=== PATIENT | female | born 1950 | race American Indian/Alaskan Native ===

== ENCOUNTER 2021-08-09 22:15 | Observation (INO) | payer MEDICARE ==
[~2021-08-09 22:15] MED LIST: LACTATED RINGERS 1,000 ML ONE; SODIUM CHLORIDE 0.9% 1000 ML 3,000 ML ONE
[2021-08-09] MEDS ORDERED: PANTOPRAZOLE 40 MG INJ IV ONE (22:19)
[2021-08-09] MEDS ORDERED: SODIUM CHLORIDE 0.9% 1000 ML 1,000 ML IV ONE (22:19)
--- NOTE | 2021-08-09 22:29 | Emergency Department Report ---
HPI - General Chief Complaint: GI Bleed Time Seen by Provider: 08/09/21 22:17 - HPI HPI: 70-year-old female with history of hypertension and myasthenia gravis brought in by EMS due to rectal bleeding and low blood pressure. According to the EMS report, the patient was lightheaded and had initial blood pressure of 60s over 30s. She became lightheaded and had a syncopal versus near syncopal episode in route. She was given approximately 700 cc of saline. The patient reports that approximately 3 hours ago she was on the toilet having a bowel movement when she noticed bright red blood in the toilet mixed with stool. She is unable to quantify the amount of blood. She says she drank milk today by mistake thinking it was lactated because she is lactose intolerant. She has no history of rectal bleeding. She is not on blood thinners. She denies any associated symptoms other than lightheadedness. The patient denies any headache, vision change, chest pain, shortness of breath, cough, back pain, abdominal pain, nausea/vomiting, focal weakness, sensory changes, or any other complaints. ED Past Medical Hx - Past Medical History Previous Medical History?: Yes Hx Hypertension: Yes Additional medical history: myasthenia gravis - Surgical History Past Surgical History?: No ED Review of Systems ROS: Stated complaint: rectal bleeding Other details as noted in HPI Comment: All other systems reviewed and negative Constitutional: denies: chills, fever Eyes: denies: eye pain, vision change ENT: denies: throat pain, congestion Respiratory: denies: cough, shortness of breath Cardiovascular: syncope. denies: chest pain, palpitations Gastrointestinal: diarrhea, hematochezia. denies: abdominal pain, nausea, vomiting, constipation Genitourinary: denies: dysuria, frequency Musculoskeletal: denies: back pain, arthralgia Skin: denies: rash, lesions Neurological: denies: headache, weakness, numbness Hematological/Lymphatic: denies: easy bleeding Physical Exam - Physical Exam Vital Signs: Vital Signs 08/09/21 22:17 Pulse Rate 79 Respiratory 18 Rate Blood Pressure 68/40 [Left] O2 Sat by Pulse 98 Oximetry Physical Exam: GENERAL: Well developed and well nourished. No acute distress HEAD: Normocephalic. No obvious signs of trauma. ENT: Very dry mucous membranes. EYES: Extraocular movements are intact. Pupils are equal round and reactive to light bilaterally NECK: Supple. Full ROM is intact. Trachea is midline. LUNGS: Nonlabored breathing. Equal chest rise bilaterally. Clear to auscultation bilaterally. CARDIOVASCULAR: Regular rate and rhythm. No murmurs or rubs. VASCULAR: Cap refill < 2 seconds ABDOMEN: Abdomen is soft and nondistended. There is no significant tenderness, guarding or rebound. 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 SKIN: Skin is warm and dry NEURO: Patient is awake, alert, and oriented. lead technician II-XII grossly intact. No focal deficits. Normal motor and sensory exam throughout. Normal speech. MUSCULOSKELETAL: No obvious deformities. No significant tenderness. Normal ROM throughout. ED Course Vital Signs 08/09/21 22:17 Pulse Rate 79 Respiratory 18 Rate Blood Pressure 68/40 [Left] O2 Sat by Pulse 98 Oximetry ED Medical Decision Making - Lab Data Result diagrams: 08/09/21 22:28 08/09/21 22:28 Lab Results 08/09/21 08/09/21 08/09/21 Range/Units 22:28 22:28 22:28 WBC 13.0 H (4.5-11.0) K/mm3 RBC 3.93 (3.65-5.03) M/mm3 Hgb 11.1 (10.1-14.3) gm/dl Hct 36.4 (30.3-42.9) % MCV 93 (79-97) fl MCH 28 (28-32) pg MCHC 31 (30-34) % RDW 13.5 (13.2-15.2) % Plt Count 349 (140-440) K/mm3 Lymph % (Auto) 24.6 (13.4-35.0) % [place] % (Auto) 6.0 (0.0-7.3) % Eos % (Auto) 1.7 (0.0-4.3) % Baso % (Auto) 0.5 (0.0-1.8) % Lymph # (Auto) 3.2 (1.2-5.4) K/mm3 [place] # (Auto) 0.8 (0.0-0.8) K/mm3 Eos # (Auto) 0.2 (0.0-0.4) K/mm3 Baso # (Auto) 0.1 (0.0-0.1) K/mm3 Seg Neutrophils % 67.2 (40.0-70.0) % Seg Neutrophils # 8.8 H (1.8-7.7) K/mm3 PT 14.6 (12.2-14.9) Sec. INR 1.03 (0.87-1.13) APTT 37.1 H (24.2-36.6) Sec. Sodium 135 L (137-145) mmol/L Potassium 3.9 (3.6-5.0) mmol/L Chloride 104.4 (98-107) mmol/L Carbon Dioxide 16 L (22-30) mmol/L Anion Gap 19 mmol/L BUN 22 H (7-17) mg/dL Creatinine 1.2 (0.6-1.2) mg/dL Estimated GFR 54 ml/min BUN/Creatinine Ratio 18 % Glucose 190 H (65-100) mg/dL Calcium 8.0 L (8.4-10.2) mg/dL Magnesium 1.80 (1.7-2.3) mg/dL Total Bilirubin 0.20 (0.1-1.2) mg/dL Direct Bilirubin < 0.2 (0-0.2) mg/dL Indirect Bilirubin 0.0 mg/dL AST 11 (5-40) units/L ALT 5 L (7-56) units/L Alkaline Phosphatase 58 (35-129) units/L Troponin T (0.00-0.029) ng/mL Total Protein 5.4 L (6.3-8.2) g/dL Albumin 2.9 L (3.9-5) g/dL Albumin/Globulin Ratio 1.2 % Lipase 14 (13-60) units/L Blood Type Antibody Screen Crossmatch 08/09/21 08/09/21 Range/Units 22:28 22:40 WBC (4.5-11.0) K/mm3 RBC (3.65-5.03) M/mm3 Hgb (10.1-14.3) gm/dl Hct (30.3-42.9) % MCV (79-97) fl MCH (28-32) pg MCHC (30-34) % RDW (13.2-15.2) % Plt Count (140-440) K/mm3 Lymph % (Auto) (13.4-35.0) % [place] % (Auto) (0.0-7.3) % Eos % (Auto) (0.0-4.3) % Baso % (Auto) (0.0-1.8) % Lymph # (Auto) (1.2-5.4) K/mm3 [place] # (Auto) (0.0-0.8) K/mm3 Eos # (Auto) (0.0-0.4) K/mm3 Baso # (Auto) (0.0-0.1) K/mm3 Seg Neutrophils % (40.0-70.0) % Seg Neutrophils # (1.8-7.7) K/mm3 PT (12.2-14.9) Sec. INR (0.87-1.13) APTT (24.2-36.6) Sec. Sodium (137-145) mmol/L Potassium (3.6-5.0) mmol/L Chloride (98-107) mmol/L Carbon Dioxide (22-30) mmol/L Anion Gap mmol/L BUN (7-17) mg/dL Creatinine (0.6-1.2) mg/dL Estimated GFR ml/min BUN/Creatinine Ratio % Glucose (65-100) mg/dL Calcium (8.4-10.2) mg/dL Magnesium (1.7-2.3) mg/dL Total Bilirubin (0.1-1.2) mg/dL Direct Bilirubin (0-0.2) mg/dL Indirect Bilirubin mg/dL AST (5-40) units/L ALT (7-56) units/L Alkaline Phosphatase (35-129) units/L Troponin T < 0.010 (0.00-0.029) ng/mL Total Protein (6.3-8.2) g/dL Albumin (3.9-5) g/dL Albumin/Globulin Ratio % Lipase (13-60) units/L Blood Type A POSITIVE Antibody Screen Negative Crossmatch See Detail - EKG Data -: EKG Interpreted by Mo - EKG Data 08/10/21 02:31 Normal sinus rhythm. Normal axis. Normal intervals. No ectopy. Nonspecific T wave inversions. No significant ST segment abnormalities. - Radiology Data Radiology results: report reviewed - Medical Decision Making 70-year-old female with hypertension myasthenia gravis brought in by EMS with rectal bleeding for the past 3 hours and hypotension with brief syncope versus near syncopal episode while in route. Upon arrival to our emergency department after receiving 700 cc of saline in the ambulance, the patient's blood pressure is 72/42. Rectal examination reveals no brisk bleeding from the rectum but there is bright red blood and blood clots within the rectal vault which are Hemoccult positive. Given the patient's hypotension, I immediately requested 2 large-bore IVs. I spoke with the blood bank to request 2 units of uncrossed matched blood to transfuse immediately. I have also ordered 1 L to be transfused immediately. Full set of labs have been ordered. We will give 80 mg of IV Protonix. The patient's blood pressure has improved as blood has been transfused. Labs reveal white blood cell count of 13 and hemoglobin of 11.1. I suspect that this hemoglobin is lacking behind the patient's bleed which was significant enough to cause hypotension. Troponin is negative. Creatinine is 1.2 from unknown baseline. When I spoke reassess the patient after she received blood, she reports that she feels much better. She has no symptoms currently. At 11 PM I spoke with Dr. Yoo of gastro neurology regarding the case. He recommends CT angio of the abdomen to assess for evidence of active bleed. He states that if the patient does not have an active bleed she likely has a diverticular bleed and is appropriate for admission with consult by GI in the morning. CTA shows no evidence of active bleed but shows generalized diverticulosis. She will be admitted for further work-up and management as appropriate. All this was discussed with the patient who expressed understanding agreement with plan of care. I spoke with Dr. Johnson, the on-call hospitalist regarding the case and he accepts the patient for admission and will assume care. Critical Care Time: Yes Critical care time in (mins) excluding proc time.: 40 Critical care attestation.: If time is entered above; I have spent that time in minutes in the direct care of this critically ill patient, excluding procedure time. Critical care time was spent in the evaluation/assessment, work-up, and management of GI bleed with hypotension requiring transfusion of uncrossed blood and consultation with specialist along with close observation and repeat reassessment and reevaluation. ED Disposition Clinical Impression: GI bleed, Hypotension, Diverticulosis, History of myasthenia gravis Disposition: 09 ADMITTED INPATIENT Is pt being admited?: Yes Condition: Serious Referrals: PRIMARY CARE, [Primary Care Provider] - 3-5 Days Forms: Accompanied Note
[2021-08-09 22:52] LABS: Basophils # (Auto) 0.1 K/mm3 (0.0-0.1); Basophils % (Auto) 0.5 % (0.0-1.8); Eosinophils # (Auto) 0.2 K/mm3 (0.0-0.4); Eosinophils % (Auto) 1.7 % (0.0-4.3); Hematocrit 36.4 % (30.3-42.9); Hemoglobin 11.1 gm/dl (10.1-14.3); Lymphocytes # (Auto) 3.2 K/mm3 (1.2-5.4); Lymphocytes % (Auto) 24.6 % (13.4-35.0); Mean Corpuscular HGB Conc 31 % (30-34); Mean Corpuscular Volume 93 fl (79-97); Monocytes # (Auto) 0.8 K/mm3 (0.0-0.8); Platelet Count 349 K/mm3 (140-440); Red Blood Count 3.93 M/mm3 (3.65-5.03); Red Cell Distribution Width 13.5 % (13.2-15.2)
[2021-08-09 23:04] LABS: INR 1.03 (0.87-1.13)
[2021-08-09 23:05] LABS: Partial Thromboplastin Time 37.1 Sec. (24.2-36.6)
[2021-08-09 23:16] LABS: Alanine Aminotransferase 5 units/L (7-56); Albumin 2.9 g/dL (3.9-5); BUN/Creatinine Ratio 18; Blood Urea Nitrogen 22 mg/dL (7-17); Hemolysis Index 6
[2021-08-09 23:19] LABS: Bilirubin,Direct < 0.2 mg/dL (0-0.2)
--- NOTE | 2021-08-10 00:50 | Cat Scan Report ---
CTA ABDOMEN AND PELVIS WITHOUT AND WITH IV CONTRAST INDICATION: Rectal bleeding, hypotension, eval for active bleeding. TECHNIQUE: Axial CT images were obtained through the abdomen and pelvis before and after after injection of 100 cc Omnipaque 350 IV contrast. 3 plane MIP reconstructions were produced. [facility] using CT dose reduction for ALARA by means of automated exposure control. COMPARISON: CT abdomen and pelvis without contrast from 09/15/2008 FINDINGS: VASCULAR FINDINGS: AORTA: No acute findings. There is moderate generalized atherosclerosis. The aorta is normal in calib er. CELIAC TRUNK: No significant abnormality. SUPERIOR MESENTERIC ARTERY: No significant abnormality. RENAL ARTERIES: Mildly obstructive atherosclerosis is seen at the origins of the renal arteries. A pa tent accessory right renal artery is also noted. No other significant abnormality. INFERIOR MESENTERIC ARTERY: No significant abnormality. RIGHT ILIAC ARTERIES: No acute findings. There is moderate generalized atherosclerosis. LEFT ILIAC ARTERIES: No acute findings. There is moderate generalized atherosclerosis. FEMORAL ARTERIES: No acute findings. There is moderate bilateral atherosclerosis. NONTARGET STRUCTURES: ABDOMEN: A nonspecific hyperenhancing mass is seen anteriorly and laterally along the right hepatic l obe measuring 1.5 cm on image 41 of series 3. No active contrast extravasation is identified along th e GI tract. There is noninflamed generalized colonic diverticulosis. No other significant abnormaliti es. PELVIS: No significant abnormality. SKELETAL: No significant abnormality. ADDITIONAL FINDINGS: None. IMPRESSION: 1. No CT evidence of an active GI bleed or other acute abnormalities. 2. Additional findings as above. Signer Name: Duc Escobedo MD Signed: 08/10/2021 12:45 AM Workstation Name: [id number]
[2021-08-10] MEDS ORDERED: ACETAMINOPHEN 325 MG TAB PO PRN (03:25)
[2021-08-10] MEDS ORDERED: MORPHINE 4 MG/1 ML INJ IV PRN (03:25)
[2021-08-10] MEDS ORDERED: ONDANSETRON 4 MG/2 ML INJ IV PRN (03:25)
[2021-08-10] MEDS ORDERED: MORPHINE 2 MG/1 ML INJ IV PRN (03:25)
[2021-08-10 03:29] LABS: Bacteria,Urine 1+ /HPF (Negative); Bilirubin,Urine NEG (Negative); Blood,Urine LG (Negative); Color,Urine Yellow (Yellow); Mucus,Urine FEW /HPF; Protein,Urine <15 mg/dL mg/dL (Negative); Urobilinogen,Urine < 2.0 mg/dL (<2.0)
--- NOTE | 2021-08-10 03:50 | History and Physical Report ---
History of Present Illness Date of examination: 08/10/21 Date of admission: 08/10/21 02:08 Chief complaint: GI bleed Hypotension History of present illness: 70-year-old female with known history of myasthenia gravis presenting to the emergency room today via EMS for evaluation of rectal bleeding and hypotension. Patient states she became lightheaded after using the restroom today. She also had bright red blood mixed with the stool when she went to the restroom. According to EMS blood pressure initially was 60s systolic and 30s diastolic.. She had about 700 cc of normal saline with improvement of blood pressure to about 70/40 mmHg. Patient denies having this type of episodes in the past. She also indicates that she has had colonoscopies in the recent past without any abnormalities detected. Patient denies any fever or chills, no chest pain or shortness of breath, no nausea vomiting and no abdominal pain. She denies any hematuria or dysuria. Upon arrival in the emergency room patient had some blood transfusion. Work-up however reveals leukocytosis of 13, BUN of 22 and creatinine of 1.2. Urinalysis shows a mild UTI. CT angiogram of the abdomen shows no evidence of active GI bleeding. Colonic diverticulosis was noted. Forming Operator on-call Dr. Yoo was notified by the ER physician. Past History Past Medical History: hypertension, other (Myasthenia gravis) Past Surgical History: Other (Colonoscopies in the past) Social history: no significant social history Family history: no significant family history Medications and Allergies Allergies Allergy/AdvReac Type Severity Reaction Status Date / Time No Known Allergies Allergy Unverified 08/09/21 22:44 Active Meds: Active Medications Acetaminophen (Acetaminophen 325 Mg Tab) 650 mg PO Q4H PRN PRN Reason: Pain MILD(1-3)/Fever >100.5/LU Sodium Chloride (Nacl 0.9% 1000 Ml) 1,000 mls @ 75 mls/hr IV DIRECT HAYDEN Morphine Sulfate (Morphine 2 Mg/1 Ml Inj) 2 mg IV Q4H PRN PRN Reason: Pain, Moderate (4-6) Morphine Sulfate (Morphine 4 Mg/1 Ml Inj) 4 mg IV Q4H PRN PRN Reason: Pain , Severe (7-10) Ondansetron HCl (Ondansetron 4 Mg/2 Ml Inj) 4 mg IV Q8H PRN PRN Reason: Nausea And Vomiting Sodium Chloride (Sodium Chloride 0.9% 10 Ml Flush Syringe) 10 ml IV BID HAYDEN Sodium Chloride (Sodium Chloride 0.9% 10 Ml Flush Syringe) 10 ml IV PRN PRN PRN Reason: LINE FLUSH Review of Systems Constitutional: no fever, no chills Ears, nose, mouth and throat: no nasal congestion, no sore throat Cardiovascular: no chest pain, no palpitations Respiratory: no cough, no shortness of breath Gastrointestinal: BRBPR, no abdominal pain, no nausea, no vomiting, no hematemesis Genitourinary Female: no dysuria, no hematuria Rectal: bleeding Integumentary: no rash, no pruritis Psychiatric: no anxiety, no depression Endocrine: no polyphagia, no polydipsia, no polyuria, no nocturia Exam - Constitutional Vitals: Temp Pulse Resp BP Pulse Ox 98.6 F 88 24 123/70 99 08/09/21 23:39 08/10/21 01:00 08/10/21 01:00 08/10/21 01:00 08/10/21 01:15 General appearance: Present: no acute distress, well-nourished - EENT Eyes: Present: PERRL, EOM intact. Absent: scleral icterus ENT: hearing intact, clear oral mucosa, dentition normal - Neck Neck: Present: supple, normal ROM - Respiratory Respiratory effort: normal Respiratory: bilateral: CTA - Cardiovascular Rhythm: regular Heart Sounds: Present: S1 & S2. Absent: gallop, systolic murmur, diastolic murmur, rub, click - Extremities Extremities: no ischemia, pulses intact, pulses symmetrical, No edema, normal temperature, normal color, Full ROM Peripheral Pulses: within normal limits - Abdominal General gastrointestinal: Present: soft, non-tender, non-distended, normal bowel sounds. Absent: mass - Integumentary Integumentary: Present: clear, warm, dry - Musculoskeletal Musculoskeletal: strength equal bilaterally - Psychiatric Psychiatric: appropriate mood/affect, intact judgment & insight, memory intact, cooperative - Neurologic Neurologic: CNII-XII intact, no focal deficits, moves all extremities HEART Score - HEART Score Troponin: Troponin T < 0.010 ng/mL (0.00-0.029) 08/09/21 22:28 Results - Labs CBC & Chem 7: 08/09/21 22:28 08/09/21 22:28 Labs: Abnormal lab results 08/09/21 08/09/21 08/09/21 Range/Units 22:28 22:28 22:28 WBC 13.0 H (4.5-11.0) K/mm3 Seg Neutrophils # 8.8 H (1.8-7.7) K/mm3 APTT 37.1 H (24.2-36.6) Sec. Sodium 135 L (137-145) mmol/L Carbon Dioxide 16 L (22-30) mmol/L BUN 22 H (7-17) mg/dL Glucose 190 H (65-100) mg/dL Calcium 8.0 L (8.4-10.2) mg/dL ALT 5 L (7-56) units/L Total Protein 5.4 L (6.3-8.2) g/dL Albumin 2.9 L (3.9-5) g/dL Ur Specific [place] (1.003-1.030) Urine WBC (Auto) (0.0-6.0) /HPF Crossmatch 08/09/21 08/09/21 Range/Units 22:40 Unknown WBC (4.5-11.0) K/mm3 Seg Neutrophils # (1.8-7.7) K/mm3 APTT (24.2-36.6) Sec. Sodium (137-145) mmol/L Carbon Dioxide (22-30) mmol/L BUN (7-17) mg/dL Glucose (65-100) mg/dL Calcium (8.4-10.2) mg/dL ALT (7-56) units/L Total Protein (6.3-8.2) g/dL Albumin (3.9-5) g/dL Ur Specific [place] 1.050 H (1.003-1.030) Urine WBC (Auto) 45.0 H (0.0-6.0) /HPF Crossmatch See Detail Assessment and Plan - Patient Problems (1) GI bleed Current Visit: Yes Status: Acute Plan to address problem: Possibly diverticular bleed. We will await further evaluation by gastroenterology. We will also monitor CBC. (2) Diverticulosis Current Visit: Yes Status: Acute Plan to address problem: We await further evaluation by gastroenterology. (3) History of myasthenia gravis Current Visit: Yes Status: Acute Plan to address problem: Stable. We will continue routine home medications. (4) Hypotension Current Visit: Yes Status: Acute Plan to address problem: Possibly secondary to GI blood loss. We will continue on IV fluid and monitor vital signs closely. (5) UTI (urinary tract infection) Current Visit: Yes Status: Acute Plan to address problem: Patient placed on empiric IV antibiotics. (6) DVT prophylaxis Current Visit: Yes Status: Acute Plan to address problem: Patient placed on sequential compression device. (7) Full code status Current Visit: Yes Status: Acute Plan to address problem: Patient is full code.
[2021-08-10] MEDS ORDERED: cefTRIAXone/NS 2 GM/100 ML 2 GM/100 ML BAG IV ONE (04:58)
[2021-08-10] MEDS: SODIUM CHLORIDE 0.9% 1000 ML 1,000 ML IV SCH ×2 (05:19→12:41)
--- NOTE | 2021-08-10 13:07 | Event Note ---
Date: 08/10/21 Patient seen and examined Chart reviewed Patient is doing well Lower GI bleeding stopped spontaneously Patient had 3 colonoscopies in the past The first 1 in year 1999, second colonoscopy in 2009 and third colonoscopy in 2016 Patient did colonoscopies frequently because of colon cancer history in the family Patient is interested in getting colonoscopy to know the diagnosis. Patient had 2 units of packed red blood cells because of hypotension Patient started on clear liquids Patient to get Colon Prep if necessary after GI sees her in consultation.
[2021-08-10 14:55] LABS: Hematocrit 33.6 % (30.3-42.9); Hemoglobin 10.9 gm/dl (10.1-14.3)
--- NOTE | 2021-08-10 18:20 | Gastroenterology Consultation ---
History of Present Illness - Reason for Consult Consult date: 08/10/21 Diverticular Hemorrhage Requesting physician: JUANA BERNBAE - History of Present Illness The patient is a 70 yo female admitted with acute hematochezia (3 episodes) yesterday. There was associated hypotension in the ER (resolved). She rec'd 2 units PRBC, but current hct is 33. She has no hx of GI bleed, but a CT showed extensive diverticulosis. She was not taking NSAIDs nor DOAC. She last had a colonoscopy about 4 years ago (normal without polyps, other than tics). She has no hx of PUD or bleeding disorder. She has no abdominal pain. Today, she tolerated a liquid diet without blood loss. There is no family hx of colon cancer or diverticulitis. Past History Past Medical History: hypertension, other (Myasthenia gravis) Past Surgical History: Other (Colonoscopies in the past) Social history: no significant social history Family history: no significant family history Medications and Allergies Allergies Allergy/AdvReac Type Severity Reaction Status Date / Time No Known Allergies Allergy Unverified 08/09/21 22:44 Active Meds: Active Medications Acetaminophen (Acetaminophen 325 Mg Tab) 650 mg PO Q4H PRN PRN Reason: Pain MILD(1-3)/Fever >100.5/LU Sodium Chloride (Nacl 0.9% 1000 Ml) 1,000 mls @ 75 mls/hr IV DIRECT HAYDEN Last Admin: 08/10/21 12:41 Dose: 75 mls/hr Documented by: Ceftriaxone Sodium (Rocephin/Ns 1 Gm/50 Ml) 1 gm in 50 mls @ 100 mls/hr IV Q24H HAYDEN; Protocol Morphine Sulfate (Morphine 2 Mg/1 Ml Inj) 2 mg IV Q4H PRN PRN Reason: Pain, Moderate (4-6) Morphine Sulfate (Morphine 4 Mg/1 Ml Inj) 4 mg IV Q4H PRN PRN Reason: Pain , Severe (7-10) Ondansetron HCl (Ondansetron 4 Mg/2 Ml Inj) 4 mg IV Q8H PRN PRN Reason: Nausea And Vomiting Sodium Chloride (Sodium Chloride 0.9% 10 Ml Flush Syringe) 10 ml IV BID HAYDEN Last Admin: 08/10/21 12:41 Dose: 10 ml Documented by: Sodium Chloride (Sodium Chloride 0.9% 10 Ml Flush Syringe) 10 ml IV PRN PRN PRN Reason: LINE FLUSH I HAVE REVIEWED/RECONCILED MEDICATIONS Review of Systems - Review of Systems All systems: negative (as noted in the HPI) Exam - Constitutional Vital Signs: Temp Pulse Resp BP Pulse Ox 98.5 F 82 18 123/74 96 08/10/21 10:13 08/10/21 10:15 08/10/21 14:00 08/10/21 10:13 08/10/21 14:00 General appearance: no acute distress - EENT Eyes: PERRL, EOM intact ENT: hearing intact, clear oral mucosa - Neck Neck: supple, normal ROM - Respiratory Respiratory effort: normal Respiratory: bilateral: CTA - Cardiovascular Rhythm: regular Heart Sounds: Present: S1 & S2 Extremities: no ischemia, No edema - Gastrointestinal General gastrointestinal: Present: soft, non-tender, non-distended - Integumentary Integumentary: Present: clear, warm, dry - Neurologic Neurological: alert and oriented x3 - Labs CBC & Chem 7: 08/10/21 13:54 08/09/21 22:28 Lab Results: Laboratory Results - last 24 hr 08/09/21 08/09/21 08/09/21 22:28 22:28 22:28 WBC 13.0 H RBC 3.93 Hgb 11.1 Hct 36.4 MCV 93 MCH 28 MCHC 31 RDW 13.5 Plt Count 349 Lymph % (Auto) 24.6 [place] % (Auto) 6.0 Eos % (Auto) 1.7 Baso % (Auto) 0.5 Lymph # (Auto) 3.2 [place] # (Auto) 0.8 Eos # (Auto) 0.2 Baso # (Auto) 0.1 Seg Neutrophils % 67.2 Seg Neutrophils # 8.8 H PT 14.6 INR 1.03 APTT 37.1 H Sodium 135 L Potassium 3.9 Chloride 104.4 Carbon Dioxide 16 L Anion Gap 19 BUN 22 H Creatinine 1.2 Estimated GFR 54 BUN/Creatinine Ratio 18 Glucose 190 H Calcium 8.0 L Magnesium 1.80 Total Bilirubin 0.20 Direct Bilirubin < 0.2 Indirect Bilirubin 0.0 AST 11 ALT 5 L Alkaline Phosphatase 58 Troponin T Total Protein 5.4 L Albumin 2.9 L Albumin/Globulin Ratio 1.2 Lipase 14 Urine Color Urine Turbidity Urine pH Ur Specific [place] Urine Protein Urine Glucose (UA) Urine Ketones Urine Blood Urine Nitrite Urine Bilirubin Urine Urobilinogen Ur Leukocyte Esterase Urine WBC (Auto) Urine RBC (Auto) U Epithel Cells (Auto) Urine Bacteria (Auto) Urine Mucus Urine Yeast (Budding) Blood Type Antibody Screen Crossmatch 08/09/21 08/09/21 08/09/21 22:28 22:40 Unknown WBC RBC Hgb Hct MCV MCH MCHC RDW Plt Count Lymph % (Auto) [place] % (Auto) Eos % (Auto) Baso % (Auto) Lymph # (Auto) [place] # (Auto) Eos # (Auto) Baso # (Auto) Seg Neutrophils % Seg Neutrophils # PT INR APTT Sodium Potassium Chloride Carbon Dioxide Anion Gap BUN Creatinine Estimated GFR BUN/Creatinine Ratio Glucose Calcium Magnesium Total Bilirubin Direct Bilirubin Indirect Bilirubin AST ALT Alkaline Phosphatase Troponin T < 0.010 Total Protein Albumin Albumin/Globulin Ratio Lipase Urine Color Yellow Urine Turbidity Clear Urine pH 5.0 Ur Specific [place] 1.050 H Urine Protein <15 mg/dl Urine Glucose (UA) Neg Urine Ketones Neg Urine Blood Lg Urine Nitrite Neg Urine Bilirubin Neg Urine Urobilinogen < 2.0 Ur Leukocyte Esterase Mod Urine WBC (Auto) 45.0 H Urine RBC (Auto) 86.0 U Epithel Cells (Auto) < 1.0 Urine Bacteria (Auto) 1+ Urine Mucus Few Urine Yeast (Budding) Few Blood Type A POSITIVE Antibody Screen Negative Crossmatch See Detail 08/10/21 13:54 WBC RBC Hgb 10.9 Hct 33.6 MCV MCH MCHC RDW Plt Count Lymph % (Auto) [place] % (Auto) Eos % (Auto) Baso % (Auto) Lymph # (Auto) [place] # (Auto) Eos # (Auto) Baso # (Auto) Seg Neutrophils % Seg Neutrophils # PT INR APTT Sodium Potassium Chloride Carbon Dioxide Anion Gap BUN Creatinine Estimated GFR BUN/Creatinine Ratio Glucose Calcium Magnesium Total Bilirubin Direct Bilirubin Indirect Bilirubin AST ALT Alkaline Phosphatase Troponin T Total Protein Albumin Albumin/Globulin Ratio Lipase Urine Color Urine Turbidity Urine pH Ur Specific [place] Urine Protein Urine Glucose (UA) Urine Ketones Urine Blood Urine Nitrite Urine Bilirubin Urine Urobilinogen Ur Leukocyte Esterase Urine WBC (Auto) Urine RBC (Auto) U Epithel Cells (Auto) Urine Bacteria (Auto) Urine Mucus Urine Yeast (Budding) Blood Type Antibody Screen Crossmatch Assessment and Plan - Patient Problems (1) Diverticulosis of colon with hemorrhage Current Visit: Yes Status: Acute Plan to address problem: - The acute episode appears resolved, and the patient has no signs of bleeding today. - We will advance diet, and OK to discharge home if no bleeding tomorrow. - I would avoid NSAIDs, including ASA, for the next 7 days.
[2021-08-10] MEDS ORDERED: traZODone 100 MG TAB PO SCH (22:00)
[2021-08-11] MEDS: SODIUM CHLORIDE 0.9% 1000 ML 1,000 ML IV SCH (03:40)
[2021-08-11] MEDS ORDERED: cefTRIAXone/NS 1 GM/50 ML 1 GM/50 ML BAG IV SCH (06:00)
[2021-08-11 06:07] LABS: Basophils % (Auto) 0.7 % (0.0-1.8); Eosinophils # (Auto) 0.2 K/mm3 (0.0-0.4); Eosinophils % (Auto) 3.5 % (0.0-4.3); Hemoglobin 10.5 gm/dl (10.1-14.3); Lymphocytes % (Auto) 33.8 % (13.4-35.0); Mean Corpuscular HGB Conc 32 % (30-34); Mean Corpuscular Volume 88 fl (79-97); Monocytes # (Auto) 0.5 K/mm3 (0.0-0.8); Monocytes % (Auto) 9.1 % (0.0-7.3); Platelet Count 235 K/mm3 (140-440); Red Blood Count 3.73 M/mm3 (3.65-5.03); Red Cell Distribution Width 13.5 % (13.2-15.2)
[2021-08-11 06:29] LABS: Blood Urea Nitrogen 12 mg/dL (7-17); Calcium 8.7 mg/dL (8.4-10.2); Hemolysis Index 1
[2021-08-11 06:40] LABS: BUN/Creatinine Ratio 20
[2021-08-11] MEDS ORDERED: METOPROLOL SUCCINATE XL 25 MG TAB PO SCH (10:00)
[2021-08-11] MEDS ORDERED: METOPROLOL TARTRATE 25 MG TAB PO SCH (10:00)
--- NOTE | 2021-08-11 10:30 | Discharge Summary ---
Providers - Providers Date of Admission: 08/10/21 02:08 Date of discharge: 08/11/21 Attending physician: JUANA BERNABE 08/09/21 23:27 Consult to Physician [CONS] Stat Comment: Dr. Recio spoke with Dr. Doss @ [phone] Consulting Provider: KIRT DOSS Physician Instructions: Reason For Exam: gi bleed Primary care physician: FABRIC NORMALIZER Hospitalization Condition: Serious Hospital course: 70-year-old female with known history of myasthenia gravis presenting to the emergency room today via EMS for evaluation of rectal bleeding and hypotension. Patient states she became lightheaded after using the restroom today. She also had bright red blood mixed with the stool when she went to the restroom. According to EMS blood pressure initially was 60s systolic and 30s diastolic.. She had about 700 cc of normal saline with improvement of blood pressure to about 70/40 mmHg. Patient denies having this type of episodes in the past. She also indicates that she has had colonoscopies in the recent past without any abnormalities detected. Patient denies any fever or chills, no chest pain or shortness of breath, no nausea vomiting and no abdominal pain. She denies any hematuria or dysuria. Upon arrival in the emergency room patient had some blood transfusion. Work-up however reveals leukocytosis of 13, BUN of 22 and creatinine of 1.2. Urinalysis shows a mild UTI. CT angiogram of the abdomen shows no evidence of active GI bleeding. Colonic diverticulosis was noted. Carpet Mechanic on-call Dr. Doss was notified by the ER physician. Assessment and Plan - Patient Problems (1) GI bleed Current Visit: Yes Status: Acute Plan to address problem: Diverticular bleed No further bleeding Discharge on high-fiber diet Return to ER if bleeding recurs (2) Diverticulosis Current Visit: Yes Status: Acute Plan to address problem: Bleeding is stopped High-fiber diet (3) History of myasthenia gravis Current Visit: Yes Status: Acute Plan to address problem: Stable. We will continue routine home medications. (4) Hypotension Current Visit: Yes Status: Acute Plan to address problem: Hypertension secondary to GI bleed (5) UTI (urinary tract infection) Current Visit: Yes Status: Acute Plan to address problem: Continue oral antibiotics Disposition: 01 HOME / SELF CARE / HOMELESS Final Discharge Diagnosis (Prints w/discharge instructions): Acute GI bleed - Discharge Diagnoses (1) GI bleed Status: Acute (2) Hypotension Status: Acute (3) UTI (urinary tract infection) Status: Acute (4) History of myasthenia gravis Status: Acute Core Measure Documentation - Palliative Care Palliative Care/ Comfort Measures: Not Applicable - Core Measures Any of the following diagnoses?: none Exam - Constitutional Vitals: Temp Pulse Resp BP Pulse Ox 98.3 F 90 18 173/96 95 08/11/21 03:42 08/11/21 08:03 08/11/21 08:03 08/11/21 08:03 08/11/21 08:03 General appearance: Present: no acute distress, well-nourished - EENT Eyes: Present: PERRL ENT: hearing intact, clear oral mucosa - Neck Neck: Present: supple, normal ROM - Respiratory Respiratory effort: normal Respiratory: bilateral: CTA - Cardiovascular Heart rate: 78 Rhythm: regular Heart Sounds: Present: S1 & S2. Absent: rub, click - Extremities Extremities: no ischemia, pulses intact, pulses symmetrical, No edema Peripheral Pulses: within normal limits - Abdominal General gastrointestinal: Present: soft, non-tender, non-distended, normal bowel sounds Female genitourinary: Present: normal - Rectal Rectal Exam: deferred - Integumentary Integumentary: Present: clear, warm, dry - Musculoskeletal Musculoskeletal: gait normal, strength equal bilaterally - Psychiatric Psychiatric: appropriate mood/affect, intact judgment & insight - Neurologic Neurologic: CNII-XII intact, moves all extremities Plan Activity: no restrictions Diet: regular Follow up with: SARAH SANCHEZ MD [Primary Care Provider] - 3-5 Days KIRT DOSS MD [Staff Physician] - 7 Days Forms: Accompanied Note
[2021-08-11 12:26] VITALS: BP 155/80
--- NOTE | 2021-08-13 10:36 | Electrocardiograph Report ---
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
== END 2021-08-11 13:51 | disposition home or self-care (01) ==
LOC: ED 22:15 → 4A 08-10 02:08
PROVIDERS: ADMIT Internal Medicine Geriatric Medicine; ATTEND Internal Medicine
DX: K92.2 Gastrointestinal hemorrhage, unspecified (principal); I95.9 Hypotension, unspecified; D64.9 Anemia, unspecified; I10 Essential (primary) hypertension; N39.0 Urinary tract infection, site not specified; G70.00 Myasthenia gravis without (acute) exacerbation; F17.210 Nicotine dependence, cigarettes, uncomplicated; Z79.899 Other long term (current) drug therapy; Z86.69 Personal history of other diseases of the nervous system and sense organs; Z98.890 Other specified postprocedural states
CPT/HCPCS: 36415; 36430; 74174; 80048; 80076; 81001; 82271; 83690; 83735; 84484; 85014; 85018; 85025; 85610; 85730; 86850; 86900; 86901; 86920; 87086; 93005; 96361; 96365; 96366; 96375; 99291; 99406; C9113; G0378; J0696; J2270; J7030; J7120; P9016; Q9967; Q0162